=== PATIENT | female | born 1995 | race Caucasian/White ===

== ENCOUNTER 2018-02-16 03:14 | Emergency (ER) | payer SELFPAY ==
[2018-02-16] MEDS ORDERED: NS 1,000 ML IV ONE (05:03)
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
[2018-02-16 06:00] LABS: PLATELET COUNT 233 10^3/uL (150-400)
[2018-02-16 08:56] VITALS: BP 107/81
== END 2018-02-16 09:30 | disposition home or self-care (01) ==
LOC: EDUNIT# → SANE 09:30
DX: S00.81XA Abrasion of other part of head, initial encounter (principal); F10.129 Alcohol abuse with intoxication, unspecified; E86.9 Volume depletion, unspecified; J45.909 Unspecified asthma, uncomplicated; X58.XXXA Exposure to other specified factors, initial encounter; Y92.810 Car as the place of occurrence of the external cause; Y99.8 Other external cause status; Y93.84 Activity, sleeping
CPT/HCPCS: 80305; G0480